=== PATIENT | female | born 1995 | race Caucasian/White ===

== ENCOUNTER 2017-11-09 12:57 | Emergency (ER) | payer OTHER ==
[~2017-11-09] VITALS: Ht 180.3 cm; Wt 63.5 kg
[~2017-11-09 12:57] MED LIST: BACTRIM DS 8001 TA1 PO; MACROBID100 M1 PO; MOTRIN800 MG PO
[2017-11-09 13:02] VITALS: BP 148/89
[2017-11-09 13:26] LABS: BILIRUBIN NEGATIVE (NEGATIVE); BLOOD NEGATIVE (NEGATIVE); CLARITY CLOUDY (CLEAR); COLOR YELLOW (YELLOW); GLUCOSE NEGATIVE (NEGATIVE); KETONE NEGATIVE (NEGATIVE); LEUKO ESTERASE NEGATIVE (NEGATIVE); NITRITE NEGATIVE (NEGATIVE); PH 5.5 (5.0-9.0); SPECIFIC GRAVITY 1.025 (1.005-1.030)
[2017-11-09 13:39] LABS: BACTERIA 3+; MUCOUS 1+
[2017-11-09] MEDS ORDERED: RINGWORM14.2 GM T (16:24)
== END 2017-11-09 16:29 | disposition home or self-care (01) ==
LOC: ED 12:57
PROVIDERS: Physician Assistant
DX: R21 Rash and other nonspecific skin eruption (principal); R30.9 Painful micturition, unspecified; F17.200 Nicotine dependence, unspecified, uncomplicated

== ENCOUNTER 2018-11-29 07:17 | Emergency (ER) | payer OTHER ==
[~2018-11-29] VITALS: Wt 63.5 kg
[~2018-11-29 07:17] MED LIST changes: +RINGWORM14.2 GM T
[2018-11-29 07:22] VITALS: BP 132/90
[2018-11-29] MEDS ORDERED: AMOXICILLIN875 MG PO (07:38)
== END 2018-11-29 07:52 | disposition home or self-care (01) ==
LOC: ED 07:17
DX: K02.9 Dental caries, unspecified (principal); R51 Headache; R11.0 Nausea

== ENCOUNTER → 2020-01-17 | Outpatient (CLI) | payer OTHER ==
[~2020-01-17] MED LIST changes: +AMOXICILLIN875 MG PO
[2020-01-17 10:44] LABS: BASO # 0.1 10*3/uL (0.0-0.1); BASO % 1.4 % (0.0-1.0); EOS # 0.2 10*3/uL (0.0-0.4); EOS % 3.8 % (1.0-4.0); HEMATOCRIT 43.7 % (37.0-47.0); LYMPH # 1.9 10*3/uL (1.3-4.4); LYMPH % 29.9 % (27.0-41.0); MEAN CELL VOLUME 92.6 fl (81.0-99.0); MEAN CORPUSCULAR HGB 30.3 pg (27.0-31.0); MEAN CORPUSCULAR HGB CONC 32.7 g/dl (33.0-37.0); MEAN PLATELET VOLUME 12.5 fl (9.6-12.3); MONO # 0.6 10*3/uL (0.1-1.0); NEUT # 3.5 10*3/uL (2.3-7.9); NEUT % 55.6 % (47.0-73.0); PLATELET COUNT AUTOMATED 194 10*3/uL (130-400); RED BLOOD COUNT 4.72 10*6/uL (4.10-5.10); WHITE BLOOD COUNT 6.3 10*3/uL (4.8-10.8)
[2020-01-17 10:58] LABS: ALBUMIN 4.1 gm/dl (3.1-4.5); BILIRUBIN, DIRECT < 0.1 mg/dL (0.0-0.2); BUN 6 mg/dl (7-24); CHLORIDE 111 mmol/L (98-107); CREATININE 0.72 mg/dL (0.55-1.02); POTASSIUM 3.9 mmol/L (3.5-5.1); SGOT/AST 20 IU/L (3-35); SGPT/ALT 41 U/L (12-78); SODIUM 135 mmol/L (136-145); T3 UPTAKE 32 % (31-39); THYROXINE (T4) TOTAL 5.7 ug/dl (4.8-13.9)
[2020-01-17 11:05] LABS: ALKALINE PHOSPHATASE 60 U/L (45-117); B-hCG (QUALITATIVE) NEGATIVE (NEGATIVE); TOTAL PROTEIN 7.4 gm/dL (6.4-8.2); VALPROIC ACID (DEPAKENE) 13.3 ug/ml (50-100)
== END | disposition home or self-care (01) ==
LOC: LAB 09:48
PROVIDERS: ATTEND Psychiatry & Neurology Psychiatry
DX: Z51.81 Encounter for therapeutic drug level monitoring (principal); Z79.899 Other long term (current) drug therapy

== ENCOUNTER 2020-02-22 14:26 | Emergency (ER) | payer OTHER ==
[~2020-02-22] VITALS: Ht 180.3 cm; Wt 70.3 kg
[2020-02-22 14:32] VITALS: BP 161/85
[2020-02-22 16:19] LABS: BASO # 0.1 10*3/uL (0.0-0.1); EOS # 0.3 10*3/uL (0.0-0.4); EOS % 3.7 % (1.0-4.0); HEMATOCRIT 38.6 % (37.0-47.0); LYMPH # 2.6 10*3/uL (1.3-4.4); LYMPH % 36.9 % (27.0-41.0); MEAN CELL VOLUME 92.3 fl (81.0-99.0); MEAN CORPUSCULAR HGB 29.7 pg (27.0-31.0); MEAN CORPUSCULAR HGB CONC 32.1 g/dl (33.0-37.0); MONO # 0.6 10*3/uL (0.1-1.0); MONO % 7.9 % (3.0-9.0); NEUT # 3.5 10*3/uL (2.3-7.9); NEUT % 50.2 % (47.0-73.0); PLATELET COUNT AUTOMATED 180 10*3/uL (130-400); RED BLOOD COUNT 4.18 10*6/uL (4.10-5.10); RED CELL DISTRI WIDTH 13.3 % (0-14.5)
[2020-02-22 16:35] LABS: BILIRUBIN Negative (Negative); BLOOD 1+ (Negative); COLOR Yellow (Yellow); GLUCOSE Negative (Negative); KETONE Negative (Negative); LEUKO ESTERASE Negative (Negative); NITRITE Negative (Negative); PH 7.5 (4.5-8.0)
[2020-02-22 16:37] LABS: ALBUMIN 3.7 gm/dl (3.1-4.5); ALKALINE PHOSPHATASE 46 U/L (45-117); BUN 5 mg/dl (7-24); CHLORIDE 112 mmol/L (98-107); CREATININE 0.68 mg/dL (0.55-1.02); POTASSIUM 3.7 mmol/L (3.5-5.1); SGOT/AST 6 IU/L (3-35); SGPT/ALT 19 U/L (12-78); SODIUM 143 mmol/L (136-145); TOTAL PROTEIN 6.8 gm/dL (6.4-8.2)
[2020-02-22 16:39] LABS: ETHYL ALCOHOL < 3.0 mg/dl (<3)
[2020-02-22 16:40] LABS: BETA-HCG, QUANT < 1.0 mIU/mL (1-3)
[2020-02-22 16:42] LABS: URINE AMPHETAMINES < 1000 (1000ng/ml); URINE BARBITURATES < 200 (200ng/ml); URINE BENZODIAZEPINES < 200 (200ng/ml); URINE CANNABINOIDS (THC) > 50 (50ng/ml); URINE COCAINE < 300 (300ng/ml); URINE METHADONE < 300 (300ng/ml); URINE OPIATES < 300 (300ng/ml)
[2020-02-22 16:52] LABS: URINE PHENCYCLIDINE < 25 (25ng/ml)
[2020-02-22 16:54] LABS: CLARITY Clear (Clear)
[2020-02-22 16:55] LABS: RBC 0-2 rbc/hpf (0-2); WBC 0-2 wbc/hpf (0-5)
[2020-02-22 16:56] LABS: BACTERIA TRACE
== END 2020-02-22 20:20 | disposition home or self-care (01) ==
LOC: ED 14:26
PROVIDERS: Emergency Medicine
DX: R44.3 Hallucinations, unspecified (principal); Z79.899 Other long term (current) drug therapy

== ENCOUNTER → 2020-11-19 | Outpatient (CLI) | payer OTHER | END | disposition home or self-care (01) | LOC: LAB 09:07 | PROVIDERS: ATTEND Nurse Practitioner | DX: Z51.81 Encounter for therapeutic drug level monitoring (principal); Z79.899 Other long term (current) drug therapy ==

== ENCOUNTER → 2020-12-19 | Outpatient (CLI) | payer OTHER | END | disposition home or self-care (01) | LOC: US 13:56 | PROVIDERS: ATTEND Nurse Practitioner Women's Health | DX: Z34.00 Encounter for supervision of normal first pregnancy, unspecified trimester (principal); Z3A.09 9 weeks gestation of pregnancy ==

== ENCOUNTER → 2021-05-14 | Outpatient (CLI) | payer OTHER | END | disposition home or self-care (01) | LOC: D 09:16 | PROVIDERS: ATTEND Nurse Practitioner Women's Health | DX: O24.419 Gestational diabetes mellitus in pregnancy, unspecified control (principal) ==

== ENCOUNTER → 2024-04-02 | Day surgery (SDC) | payer OTHER ==
[~2024-04-02] VITALS: Ht 177 cm; Wt 74.0 kg
[~2024-04-02] MED LIST changes: +Dexamethasone Sodium Phospha 4 MG/ML VIAL IV ONE; +Ketorolac Tromethamine 30 MG/ML VIAL IV ONE; +LATU20TA PO; +Lactated Ringer's Solution 1,000 ML IV ONE; +Lidocaine Hydrochloride 2% 5 ML SDV IV ONE; +Lidocaine Hydrochloride 30 ML VIAL ONE; +Midazolam Hydrochloride 2 MG/2 ML VIAL IV ONE; +Ondansetron Hydrochloride 4 MG/2 ML VIAL IV ONE; +PERCOCET 5-3251 EACH PO; +PROPOFOL 200 MG/20 ML VIAL IV ONE; +ROCURONIUM BROMIDE 50 MG/5 ML SYRINGE IV ONE; +SUGAMMADEX SODIUM 200 MG/2 ML VIAL IV ONE; +ceFAZolin sodium/sodium chlor 20 ML IV ONE; +fentaNYL CITRATE 100 MCG/2 ML VIAL IV ONE
[2024-04-02 07:12] VITALS: BP 116/71
[2024-04-02 08:12] VITALS: BP 129/70
[2024-04-02 08:25] VITALS: BP 118/72
[2024-04-02 08:42] VITALS: BP 121/73
[2024-04-02 08:55] VITALS: BP 129/70
== END | disposition home or self-care (01) ==
LOC: SDC 03-30 09:30
PROVIDERS: ATTEND Surgery
DX: L73.2 Hidradenitis suppurativa (principal); L72.0 Epidermal cyst; G43.909 Migraine, unspecified, not intractable, without status migrainosus; F41.9 Anxiety disorder, unspecified; F31.9 Bipolar disorder, unspecified; F17.210 Nicotine dependence, cigarettes, uncomplicated; F12.90 Cannabis use, unspecified, uncomplicated; Z86.32 Personal history of gestational diabetes; Z87.440 Personal history of urinary (tract) infections; Z98.890 Other specified postprocedural states; Z79.899 Other long term (current) drug therapy

== ENCOUNTER → 2025-03-20 | Outpatient (CLI) | payer OTHER ==
[~2025-03-20] MED LIST changes: -Dexamethasone Sodium Phospha 4 MG/ML VIAL IV ONE; -Ketorolac Tromethamine 30 MG/ML VIAL IV ONE; -Lactated Ringer's Solution 1,000 ML IV ONE; -Lidocaine Hydrochloride 2% 5 ML SDV IV ONE; -Lidocaine Hydrochloride 30 ML VIAL ONE; -Midazolam Hydrochloride 2 MG/2 ML VIAL IV ONE; -Ondansetron Hydrochloride 4 MG/2 ML VIAL IV ONE; -PROPOFOL 200 MG/20 ML VIAL IV ONE; -ROCURONIUM BROMIDE 50 MG/5 ML SYRINGE IV ONE; -SUGAMMADEX SODIUM 200 MG/2 ML VIAL IV ONE; -ceFAZolin sodium/sodium chlor 20 ML IV ONE; -fentaNYL CITRATE 100 MCG/2 ML VIAL IV ONE
== END | disposition home or self-care (01) ==
LOC: LAB 10:06
PROVIDERS: ATTEND Internal Medicine Nephrology
DX: Z20.2 Contact with and (suspected) exposure to infections with a predominantly sexual mode of transmission (principal)